=== PATIENT | female | born 1960 | race Caucasian/White ===

== ENCOUNTER 2016-05-10 22:32 | Emergency (ER) | payer SELFPAY ==
[~2016-05-10] VITALS: Ht 160 cm; Wt 93.5 kg
[~2016-05-10 22:32] MED LIST: AMLO-145 PO; ASPI81TA3 PO; ATOR20TA38 PO; FIORINAL PO; HYD25 PO; HYDR-3011 PO; METO-407 PO
[2016-05-10 22:46] VITALS: Ht 160 cm; Wt 93.5 kg
== END 2016-05-11 00:56 | disposition left against medical advice (07) ==
LOC: E/R 22:32
DX: Z53.21 Procedure and treatment not carried out due to patient leaving prior to being seen by health care provider (principal)

== ENCOUNTER 2016-05-20 23:33 | Emergency (ER) | payer SELFPAY ==
[~2016-05-20] VITALS: Wt 91.5 kg
== END 2016-05-21 04:17 | disposition left against medical advice (07) ==
LOC: E/R 23:33
DX: Z53.21 Procedure and treatment not carried out due to patient leaving prior to being seen by health care provider (principal)

== ENCOUNTER 2017-02-17 08:17 | Day surgery (SDC) | payer OTHER ==
[~2017-02-17] VITALS: Ht 160 cm; Wt 92.9 kg
[~2017-02-17 08:17] MED LIST changes: -HYD25 PO; +HYDR25TA6 PO
[2017-02-17] MEDS ORDERED: [UNRECOGNIZED DRUG - REMARK] (09:13)
[2017-02-17 09:15] VITALS: Ht 160 cm; Wt 92.9 kg
--- NOTE | 2017-02-17 10:00 | OPPN ---
Date/Time of Note Date/Time of Note DATE: 02/17/17 TIME: 09:58 Proc Note GI Procedure Date 02/17/17 Indication: screening/surveillance Pre-procedure Diagnosis r/o colon polyps Post-procedure Diagnosis nodular cecal fold bx done Procedure Performed: Colonoscopy Surgeon see signature line Vehicle Operator Technician none Anesthesia Type: moderate sedation Tourniquet Time none EBL none Transfusion required none Biopsy 1: cecal fold Grafts/Implants none Tubes/Drains none Complication(s) none Procedure Description cecal nodular fold bx done mod sedation JAVIER NEFF MD Feb 17, 2017 10:00
[2017-02-17 10:29] VITALS: BP 132/84; RESP 14
[2017-02-17] MEDS ORDERED: FENTAnyl 50 MCG/ML VIAL ONE (10:33)
[2017-02-17] MEDS ORDERED: MIDAZOLAM 1 MG/ML 2 ML INJ ONE ×2 (10:34)
--- NOTE | 2017-02-18 04:47 | GILP ---
DATE OF PROCEDURE: NAME OF PROCEDURE: Colonoscopy. PREOPERATIVE DIAGNOSIS: Screening, rule out colon polyps. POSTOPERATIVE DIAGNOSIS: Nodular fold in the cecum noted. Biopsies were done. Rest of the colon n ormal. DESCRIPTION OF PROCEDURE: After the informed written consent was obtained, the patient was asked to lie on the left lateral side, 4 mg Versed and 75 mcg of fentanyl was given as intravenous anesthesi a. When the patient became somnolent, the Olympus video colonoscope was introduced into the rectum and scope was advanced all the way to the cecum. The fold in the cecum showed evidence of nodularity. Multiple biopsies were obtained to rule out possible lymphoma. Entire rest of the colon was examine d thoroughly which appeared normal, no additional abnormalities detected. On the way out, no additi onal abnormalities detected and the procedure was terminated. PLAN: Recommend wait for the pathology report. If the pathology is normal of lymphoid follicles, r ecommend repeat colonoscopy in 10 years. Dictated By: JAVIER WESLEY/GUY Conf#: [id number] DID#: [id number] CC: [facility];*EndCC*
== END 2017-02-17 11:20 | disposition home or self-care (01) ==
LOC: GIL 08:17
PROVIDERS: ATTEND Internal Medicine Gastroenterology
DX: Z12.11 Encounter for screening for malignant neoplasm of colon (principal); D12.0 Benign neoplasm of cecum
CPT/HCPCS: 45380; 84703; 88305; J2250; J3010; Z7610

== ENCOUNTER 2017-04-08 01:09 | Inpatient (IN) | payer OTHER ==
[~2017-04-08] VITALS: Ht 160 cm; Wt 93.2 kg
[~2017-04-08 01:09] MED LIST changes: -AMLO-145 PO; -FIORINAL PO; -HYDR-3011 PO; -HYDR25TA6 PO; +[UNRECOGNIZED DRUG - REMARK]
[2017-04-08 01:11] VITALS: Ht 160 cm; Wt 93.2 kg
[2017-04-08] MEDS ORDERED: SOD CHLORIDE 0.9% 500 ML IV STA (01:17)
[2017-04-08] MEDS ORDERED: ONDANSETRON 4 MG INJ IV STA (01:17)
[2017-04-08] MEDS ORDERED: morphine 4 MG/ML VIAL IV STA (01:17)
[2017-04-08 01:56] LABS: BASOPHILS % 0.4 % (0.0-2.0); EOSINOPHILS # 0.2 10^3/ul (0.0-0.5); EOSINOPHILS % 2.3 % (0.0-7.0); HEMATOCRIT 42.2 % (37.0-47.0); HEMOGLOBIN 14.6 g/dl (12.0-16.0); LYMPHOCYTES # 3.1 10^3/ul (0.8-2.9); LYMPHOCYTES % 37.3 % (15.0-51.0); MEAN CORPUSCULAR HEMOGLOBIN 31.3 pg (29.0-33.0); MEAN CORPUSCULAR HGB CONC 34.6 g/dl (32.0-37.0); MEAN CORPUSCULAR VOLUME 90.4 fl (82.0-101.0); MEAN PLATELET VOLUME 11.4 fl (7.4-10.4); MONOCYTE # 0.8 10^3/ul (0.3-0.9); NEUTROPHIL # 4.1 10^3/ul (1.6-7.5); NEUTROPHILS % 49.8 % (39.0-77.0); PLATELET COUNT 170 10^3/UL (140-415); RED BLOOD COUNT 4.67 10^6/ul (4.20-5.40); WHITE BLOOD COUNT 8.2 10^3/ul (4.8-10.8)
[2017-04-08 01:59] LABS: ADD UMIC YES; UR ASCORBIC ACID NEGATIVE (NEGATIVE); UR BILIRUBIN (Dip) NEGATIVE (NEGATIVE); UR BLOOD (Dip) NEGATIVE (NEGATIVE); UR CLARITY CLEAR (CLEAR); UR COLOR YELLOW (YELLOW); UR GLUCOSE (Dip) NEGATIVE (NEGATIVE); UR KETONES (Dip) NEGATIVE (NEGATIVE); UR LEUKOCYTE ESTERASE (Dip) TRACE Leu/ul (NEGATIVE); UR NITRITE (Dip) NEGATIVE (NEGATIVE); UR RBC 1 /HPF (0-5); UR SPECIFIC GRAVITY (Dip) 1.016 (1.003-1.030); UR TOTAL PROTEIN (Dip) NEGATIVE (NEGATIVE); UR UROBILINOGEN (Dip) NEGATIVE (NEGATIVE)
--- NOTE | 2017-04-08 02:03 | RADRPT ---
PROCEDURE: CT Abdomen and Pelvis without contrast. CLINICAL INDICATION: Abdominal pain. TECHNIQUE: CT scan of the abdomen and pelvis without contrast was performed on a multidetector hig h-resolution CT scanner. The patient was scanned without intravenous contrast. Coronal and sagittal reformatted images were obtained from the axial source images. Images were reviewed on a high-resol [employer] PACS workstation. The total exam CTDI equals 21.50 mGy and the total exam DLP equals 1315.63 m Gy-cm. DICOM images are available. One or more of the following dose reduction techniques were utilized: 1.) Automated exposure control 2.) Adjustment of the mA +/- kV according to patient's size 3.) Use of iterative reconstruction technique. COMPARISON: None. FINDINGS: ABNORMAL RESULTS: 17 MM CALCIFIED NODULE AT THE ANTERIOR WALL OF THE URINARY BLADDER IS SUSPICIOUS FOR NEOPLASM. PLEASE TAKE APPROPRIATE STEPS. CT abdomen: The lung bases are clear. The heart size is normal, without pericardial thickening or effusion. The liver is normal in size and density without focal mass or intrahepatic biliary dilatation. The spleen is normal in size and homogeneous in density. The stomach is partially collapsed, but is randy ssly unremarkable. The pancreas as visualized is normal. The gallbladder and biliary tree are unre markable and there is no evidence for biliary dilatation. The adrenal glands are symmetric and norm al. 11 mm high attenuation exophytic likely hemorrhagic cyst in the left kidney. Consider ultrasoun d correlation to exclude a solid nodule. Nonobstructing renal calculi at the mid pole right kidney s uggest a parenchymal scar, otherwise nonspecific. There is associated volume loss at the mid pole ri ght kidney. These measure up to about 4 mm in the axial plane. Otherwise, the kidneys are symmetrica lly unremarkable. No renal calculus or obstructive uropathy or mass lesion is seen. The aorta is of normal caliber. Aortic vascular calcifications are present. There is no retroperit mao lymphadenopathy. The stormy hepatis region is clear. The bowel and mesentery, as visualized, are equally unremarkable. ABNORMAL RESULTS: 17 MM CALCIFIED NODULE AT THE ANTERIOR WALL OF THE URINARY BLADDER IS SUSPICIOUS FOR NEOPLASM. PLEASE TAKE APPROPRIATE STEPS. CT pelvis: The small bowel loops situated within the pelvis are unremarkable. 17 mm nodule in the anterior wall of the urinary bladder with associated 4 mm calcification. Findings are suspicious for neoplasm. Re commend IV contrast enhanced CT examination of the abdomen and pelvis for further evaluation. The pe lvic organs are otherwise normal. The pelvic sidewalls and inguinal regions are clear. The sigmoid colon and rectum are remarkable for sigmoid diverticulosis. No mass, lymphadenopathy, or free flui d is seen. No acute inflammation is seen. The appendix is unremarkable. The surrounding osseous structures are remarkable for degenerative spondylosis of the spine. No ost eolytic or osteoblastic lesion is detected. IMPRESSION: 1. 17 mm calcified nodule in the anterior wall of the urinary bladder is suspicious for neoplasm. 2. Recommend non emergent IV contrast enhanced CT examination of the abdomen and pelvis for further evaluation. 3. Likely parenchymal scar at the inferior pole the right kidney, with parenchymal volume loss and d ystrophic calcifications. 4. Small likely hemorrhagic cyst at the left kidney and consider ultrasound examination to exclude a solid nodule. 5. Otherwise, no acute process in the abdomen or pelvis. ABNORMAL RESULTS: 17 MM CALCIFIED NODULE AT THE ANTERIOR WALL OF THE URINARY BLADDER IS SUSPICIOUS FOR NEOPLASM. PLEASE TAKE APPROPRIATE STEPS. Physician Lukas Date Time Electronically viewed and signed by Physician Lukas on 04/08/2017 02:03 RS/
--- NOTE | 2017-04-08 02:07 | RADRPT ---
PROCEDURE: CHEST - 1 VIEW CLINICAL INDICATION: 56-year-old female with chest/abdominal pain. TECHNIQUE: A single frontal PA view of the chest was performed. The images were reviewed on a PAC S workstation. COMPARISON: Chest x-ray April 22, 2016. FINDINGS: The cardiomediastinal silhouette is within normal limits. There is no evidence for an infiltrate. There is no evidence for congestive heart failure. There is no evidence for pneumothorax. The osseou s structures are intact. IMPRESSION: No evidence for active cardiopulmonary disease. .Malik Taylor MD, MD Date Time Electronically viewed and signed by .Malik Taylor MD, on 04/08/2017 02:07 .Kasey
[2017-04-08 02:49] LABS: ALANINE AMINOTRANSFERASE 60 IU/L (13-69); ALBUMIN 4.5 g/dl (3.3-4.9); ALBUMIN/GLOBULIN RATIO 1.21; ALKALINE PHOSPHATASE 110 IU/L (42-121); ANION GAP 13 (8-16); ASPARTATE AMINO TRANSFERASE 41 IU/L (15-46); BILIRUBIN,INDIRECT 0.1 mg/dl (0-1.1); BILIRUBIN,TOTAL 0.1 mg/dl (0.2-1.3); BLOOD UREA NITROGEN 20 mg/dl (7-20); CALCIUM 9.3 mg/dl (8.4-10.2); CARBON DIOXIDE 28 mmol/L (21-31); CHLORIDE 104 mmol/L (97-110); CREATININE 0.96 mg/dl (0.44-1.00); GLUCOSE 113 mg/dl (70-220); SODIUM 142 mmol/L (135-144); TOTAL PROTEIN 8.2 g/dl (6.1-8.1)
[2017-04-08 02:53] LABS: POTASSIUM 2.9 mmol/L (3.5-5.1)
[2017-04-08 03:02] LABS: TROPONIN-I < 0.012 ng/ml (0.00-0.12)
--- NOTE | 2017-04-08 03:21 | ERD ---
ER Documentation Chief Complaint Chief Complaint WORSENING EPIGASTRIC PAIN X 3 DAYS HPI This is a very pleasant 56-year-old comes in with worsening epigastric pain over the past 3 days along with suprapubic abdominal pain over the past 2 days. Pain in the epigastric region is 2-3 days in duration mild to moderate intensity no exacerbating relieving factors. Mild in severity region for the past 2 days. No urinary urinary urgency or frequency. No nausea no vomiting no chills. No other current complaints. ROS All systems reviewed and are negative except as per history of present illness. Medications Home Meds Active Scripts Atorvastatin Calcium* (Atorvastatin Calcium*) 20 Mg Tablet, 20 MG PO QHS, #30 TAB Prov:NEDA AGUILAR 04/23/16 Metoprolol Tartrate* (Lopressor*) 100 Mg Tablet, 100 MG PO BID, #60 TAB Prov:NEDA AGUILAR 04/23/16 Reported Medications [unknown medication] No Conflict Check 02/17/17 Aspirin* (Aspirin* Chew) 81 Mg Tab.chew, 81 MG PO DAILY, TAB.CHEW 04/23/16 Allergies Allergies: Coded Allergies: acetaminophen (Verified Allergy, Mild, 02/17/17) codeine (Verified Allergy, Mild, 02/17/17) PMhx/Soc History of Surgery: Yes (KIDNEY SURGERY FOR STONES) Anesthesia Reaction: No Hx Neurological Disorder: No Hx Respiratory Disorders: No Hx Cardiac Disorders: Yes (HTN, HYPERLIPIDEMIA) Hx Psychiatric Problems: No Hx Miscellaneous Medical Probl: No Hx Alcohol Use: No Hx Substance Use: No Hx Tobacco Use: No Smoking Status: Never smoker Physical Exam Vitals Vital Signs Date Time Temp Pulse Resp B/P Pulse Ox O2 Delivery O2 Flow Rate FiO2 04/08/17 01:11 75 16 239/114 99 Physical Exam Const: [] Head: Atraumatic Eyes: Normal Conjunctiva ENT: Normal External Ears, Nose and Mouth. Neck: Full range of motion..~ No meningismus. Resp: Clear to auscultation bilaterally Cardio: Regular rate and rhythm, no murmurs Abd: Soft, non tender, non distended. Normal bowel sounds Skin: No petechiae or rashes Back: No midline or flank tenderness Ext: No cyanosis, or edema Neur: Awake and alert Psych: Normal Mood and Affect Result Diagram: 12/5/17 0140 12/5/17 0140 Results 24 hrs Laboratory Tests Test 04/08/17 01:30 04/08/17 01:40 Urine Color YELLOW Urine Clarity CLEAR Urine pH 6.0 Urine Specific [place] 1.016 Urine Ketones NEGATIVEmg/dL Urine Nitrite NEGATIVEmg/dL Urine Bilirubin NEGATIVEmg/dL Urine Urobilinogen NEGATIVEmg/dL Urine Leukocyte Esterase TRACELeu/ul Urine Microscopic RBC 1/HPF Urine Microscopic WBC 9/HPF Urine Hemoglobin NEGATIVEmg/dL Urine Glucose NEGATIVEmg/dL Urine Total Protein NEGATIVEmg/dl White Blood Count 8.210^3/ul Red Blood Count 4.6710^6/ul Hemoglobin 14.6g/dl Hematocrit 42.2% Mean Corpuscular Volume 90.4fl Mean Corpuscular Hemoglobin 31.3pg Mean Corpuscular Hemoglobin Concent 34.6g/dl Red Cell Distribution Width 13.0% Platelet Count 99183^3/UL Mean Platelet Volume 11.4fl Neutrophils % 49.8% Lymphocytes % 37.3% Monocytes % 10.0% Eosinophils % 2.3% Basophils % 0.4% Nucleated Red Blood Cells % 0.0/100WBC Neutrophils # 4.110^3/ul Lymphocytes # 3.110^3/ul Monocytes # 0.810^3/ul Eosinophils # 0.210^3/ul Basophils # 0.010^3/ul Nucleated Red Blood Cells # 0.010^3/ul Sodium Level 142mmol/L Potassium Level 2.9mmol/L Chloride Level 104mmol/L Carbon Dioxide Level 28mmol/L Anion Gap 13 Blood Urea Nitrogen 20mg/dl Creatinine 0.96mg/dl Glucose Level 113mg/dl Calcium Level 9.3mg/dl Total Bilirubin 0.1mg/dl Direct Bilirubin 0.00mg/dl Indirect Bilirubin 0.1mg/dl Aspartate Amino Transf (AST/SGOT) 41IU/L Alanine Aminotransferase (ALT/SGPT) 60IU/L Alkaline Phosphatase 110IU/L Troponin I < 0.012ng/ml Total Protein 8.2g/dl Albumin 4.5g/dl Globulin 3.70g/dl Albumin/Globulin Ratio 1.21 Lipase 112U/L Current Medications Medications (Trade) Dose Ordered Sig/Gabby Route PRN Reason Start Time Stop Time Status Last Admin Dose Admin Sodium Chloride (NS) 500 ml @ 500 mls/hr Q1H STAT IV 04/08/17 01:17 12/5/17 02:16 DC 04/08/17 01:45 Morphine Sulfate (morphine) 4 mg ONCE STAT IV 04/08/17 01:17 04/08/17 01:18 DC 04/08/17 01:43 Ondansetron HCl (Zofran Inj) 4 mg ONCE STAT IV 04/08/17 01:17 04/08/17 01:18 DC 04/08/17 01:43 Procedures/MDM Assessment: 56-year-old female with abdominal pain. Found to be hypokalemic. Potassium repleted. Suspicious mass en bloc CT scan will need to be further evaluated. Patient will be admitted to hospitalist. Departure Diagnosis: Primary Impression: Abdominal pain Abdominal location: unspecified location Qualified Code: R10.9 - Abdominal pain, unspecified abdominal location Condition: Serious ALBANIA MORENO Apr 08, 2017 03:21
[2017-04-08] MEDS ORDERED: POTASSIUM CHLORIDE 250 ML IVPB ONE (03:30)
[2017-04-08] MEDS ORDERED: NACL 0.9% 3 ML SYG IV SCH (04:30)
[2017-04-08] MEDS ORDERED: ALBUTEROL/IPRATROPIUM (NEB) 3 ML AMP HHN PRN (04:30)
[2017-04-08] MEDS ORDERED: ONDANSETRON 4 MG INJ IV PRN (04:30)
[2017-04-08 06:00] VITALS: BP 157/84; RESP 14
[2017-04-08 07:41] VITALS: BP 154/77; RESP 20
[2017-04-08 08:20] LABS: CALCIUM 8.7 mg/dl (8.4-10.2); CREATININE 0.65 mg/dl (0.44-1.00); POTASSIUM 3.5 mmol/L (3.5-5.1)
[2017-04-08] MEDS: METOPROLOL 100 MG TAB PO SCH ×2 (09:28→20:58)
[2017-04-08] MEDS: CEFTRIAXONE 1 GM/50 ML (PMX) 50 ML IVPB SCH ×2 (09:28→20:56)
[2017-04-08] MEDS: DEXTROSE 5%-0.45% NACL 1,000 ML IV SCH ×3 (09:30→20:59)
--- NOTE | 2017-04-08 09:53 | HP ---
Date/Time of Note Date/Time of Note DATE: 04/08/17 TIME: 09:42 Assessment/Plan VTE Prophylaxis VTE Prophylaxis Intervention: SCD's Lines/Catheters IV C[facility]from [facility] Peripheral IV Assessment/Plan Assessment/Plan 1. Bladder mass, suspicious for neoplasm - urology evaluation -Urine cytology 2. Abdominal pain -location of her abdominal pain does not seem to be related to the CT scan finding of a bladder mass, but the workup for the bladder mass is as mentioned above. -Trial of PPI. Lipase is negative so unlikely pancreatitis 3. UTI - IV antibiotic - Follow-up culture results 4. History of bilateral kidney stone: with a history of right-sided stent placement -CT scan this time did not show calculus, so we are not dealing his acute issue here 5. History of hypertension Continue antihypertensives adjustment as needed 6. History of dyslipidemia Continue outpatient medications 7. Obesity, with a BMI of 36 Weight reduction was advised HPI/ROS Admit Date/Time Admit Date/Time Apr 08, 2017 at 03:22 Hx of Present Illness This is a 56-year-old female with a history of hypertension, dyslipidemia, bilateral kidney stones with a history of right sided stent placement. Patient presented to ER complaining of abdominal pain. Pain started 10 days ago, acutely worsening for the past 1 day. She reported associated nausea but no vomiting. Pain is mainly localized in the epigastric area. She also reported acid reflux symptoms. Denied dysuria, hematuria, fever/chills, chest pain or shortness of breath. When she presented to the ER CT abdomen/pelvis [id number] mm calcified nodule in the anterior wall of the urinary bladder is suspicious for neoplasm. Urinalysis consistent with UTI. Initial potassium was 2.9 and was repleted in the ER. I have talked to her son over the phone about the CT scan finding of possible bladder neoplasm. He wanted her mom to be told about the findings in the presence of family members. When I went into the patient's room and started introducing myself, patient appeared slightly anxious and started mentioning cancer. I briefly told her about abnormality in her bladder but told her dad we will discuss the findings when her son or other family members are present, which she agreed with. PMH/Family/Social Social History Smoking Status: Never smoker Exam/Review of Systems Vital Signs Vitals Vital Signs Date Time Temp Pulse Resp B/P Pulse Ox O2 Delivery O2 Flow Rate FiO2 12/5/17 07:41 98.0 72 20 154/77 96 04/08/17 04:19 Room Air Intake and Output 04/07/17 04/07/17 04/08/17 14:59 22:59 06:59 Intake Total 0 ml Output Total 0 ml Balance 0 ml Exam Constitutional: alert, oriented, other (Slightly anxious) Head: atraumatic, normocephalic Eyes: EOMI, PERRL Respiratory: clear to auscultation, normal air movement Cardiovascular: nl pulses, regular rate and rhythm Gastrointestinal: other (Minimal tenderness to deep palpation in the epigastric area, with no guarding, no rigidity), soft Extremities: normal pulses Labs Result Diagram: 04/08/17 0140 04/08/17 0742 Medications Medications Current Medications Dextrose/Sodium Chloride (D5-1/2ns) 1,000 ml @ 100 mls/hr Q10H IV Last administered on 04/08/17 09:30; Admin Dose 100 MLS/HR; Start 04/08/17 at 04:30 Ondansetron HCl (Zofran Inj) 4 mg Q6H PRN IV NAUSEA AND/OR VOMITING; Start 04/08/17 at 04:30 Atorvastatin Calcium (Lipitor) 20 mg QHS PO ; Start 04/08/17 at 21:00 Metoprolol Tartrate 100 mg 100 mg BID PO Last administered on 04/08/17 09:28; Admin Dose 100 MG; Start 04/08/17 at 09:00 Ceftriaxone Sodium (Rocephin) 50 ml @ 100 mls/hr Q12 IVPB Last administered on 04/08/17 09:28; Admin Dose 100 MLS/HR; Start 04/08/17 at 09:00 Tramadol HCl (Ultram) 50 mg Q6H PRN PO PAIN; Start 04/08/17 at 04:30 Ketorolac Tromethamine (Toradol) 15 mg Q6H PRN IV PAIN; Start 04/08/17 at 04:30 ; Stop 04/11/17 at 04:29 Influenza Virus Vaccine (Fluzone) 0.5 ml ONCE ONCE IM* ; Start 04/08/17 at 11:00 ; Stop 04/08/17 at 11:01 ALBANIA RIBEIRO MD Apr 08, 2017 09:53
[2017-04-08] MEDS ORDERED: INFLUENZA VIRUS VACCINE 0.5 ML SYG IM* ONE (11:00)
[2017-04-08 14:10] VITALS: BP 128/65; RESP 20
[2017-04-08] MEDS: KETOROLAC 15 MG INJ IV PRN (17:06)
--- NOTE | 2017-04-08 19:33 | CONS ---
Date/Time of Note Date/Time of Note DATE: 04/08/17 TIME: 19:20 Assessment/Plan Assessment/Plan Chief Complaint/Hosp Course 56-year-old female presented to the emergency room because of abdominal pain mostly in the epigastric area and also across the abdomen and in the lower abdomen. Pain was associated with nausea but no vomiting. Patient has no lower urinary tract symptoms. She underwent a CT scan of the abdomen and pelvis and that showed a 17 mm mass in the anterior bladder was calcification on it. I looked at her CT scan and she did have similar problem on June 02, 2011 which would make it about 6 years ago. The mass has increased in size from 5 to17 mm and the calcification was present at that time as well. The patient denies any history of gross hematuria. She did have a staghorn calculus in the right kidney for which she underwent open surgery at [facility] and she still have stones in the right kidney and she may well have passed a small stone that causes her pain and may be nausea. If there is no explanation to her pain then I will do a cystoscopy and bladder biopsy and retrograde pyelogram. the stones that she has in the kidney are small but could block her intermittently to cause her pain Problems: Consultation Date/Type/Reason Admit Date/Time Apr 08, 2017 at 03:22 Date of Consultation: Apr 08, 2017 Type of Consultation: Urology Reason for Consultation 17 mm mass anterior bladder wall was calcification on it Referring Provider: ALBANIA RIBEIRO MD Hx of Present Illness 56-year-old female presented to the emergency room complaining of mostly epigastric pain was nausea and now she states that the also pain was in all over the abdomen. She was having this pain for about 5 days and the day of her admission the pain was sudden and severe. Upon admission she underwent a CT scan of the abdomen and pelvis and that showed a mass measuring about 17 mm anterior bladder wall with calcification on it therefore a urological consultation was requested. The patient does have a history of staghorn calculus of the right kidney and she has undergone a partial nephrectomy at [facility] in 1999. She still has residual stones in the right kidney. The patient was here in May 2011 and she did have a CT scan of the time and that showed the same finding on the anterior bladder wall. But the mass was smaller than it is now. Patient herself denies any urinary symptoms she has no dysuria no gross hematuria no urgency or urgency incontinence. Constitutional: no complaints Eyes: no complaints ENT: no complaints Respiratory: no complaints Cardiovascular: no complaints Gastrointestinal: nausea, No vomiting Genitourinary: No dysuria, No hematuria Musculoskeletal: no complaints Skin: no complaints Neurologic: no complaints Endocrine: no complaints Lymphatic: no complaints Psychological: no complaints Past Medical History Medical History: high cholesterol, hypertension, other (Obesity) Past Surgical History Past Surgical Hx: other (Surgery for right renal staghorn calculus in 1999. she did have a JJ stent at that time) Family History Significant Family History: no pertinent family hx Social History Alcohol Use: none Smoking Status: Never smoker Other Social History She is a 3 para 3 normal deliveries Exam/Review of Systems Vital Signs Vitals Vital Signs Date Time Temp Pulse Resp B/P Pulse Ox O2 Delivery O2 Flow Rate FiO2 04/08/17 14:10 98.3 60 20 128/65 96 04/08/17 04:19 Room Air Intake and Output 04/07/17 04/07/17 04/08/17 15:00 23:00 07:00 Intake Total 0 ml Output Total 0 ml Balance 0 ml Exam Constitutional: alert, oriented Psych: no complaints Head: normocephalic Eyes: nl conjunctiva ENMT: nl external ears & nose Neck: supple Respiratory: normal air movement Cardiovascular: No jugular venous distention (JVD) Gastrointestinal: non-tender, other (Obese), soft, surgical scars Genitourinary - Female: other (Pelvic exam no mass no discharge), No CVA tenderness Musculoskeletal: nl extremities to inspection Extremities: No calf tenderness, No edema Neurological: nl mental status Skin: nl turgor Results Result Diagram: 04/08/17 0140 04/08/17 0742 Results 24 hrs Laboratory Tests Test 04/08/17 01:30 04/08/17 01:40 04/08/17 07:42 Urine Color YELLOW Urine Clarity CLEAR Urine pH 6.0 Urine Specific [place] 1.016 Urine Ketones NEGATIVE Urine Nitrite NEGATIVE Urine Bilirubin NEGATIVE Urine Urobilinogen NEGATIVE Urine Leukocyte Esterase TRACE A Urine Microscopic RBC 1 Urine Microscopic WBC 9 H Urine Hemoglobin NEGATIVE Urine Glucose NEGATIVE Urine Total Protein NEGATIVE White Blood Count 8.2 # Red Blood Count 4.67 Hemoglobin 14.6 Hematocrit 42.2 Mean Corpuscular Volume 90.4 Mean Corpuscular Hemoglobin 31.3 Mean Corpuscular Hemoglobin Concent 34.6 Red Cell Distribution Width 13.0 Platelet Count 170 Mean Platelet Volume 11.4 H Neutrophils % 49.8 Lymphocytes % 37.3 Monocytes % 10.0 Eosinophils % 2.3 Basophils % 0.4 Nucleated Red Blood Cells % 0.0 Neutrophils # 4.1 Lymphocytes # 3.1 H Monocytes # 0.8 Eosinophils # 0.2 Basophils # 0.0 Nucleated Red Blood Cells # 0.0 Sodium Level 142 142 Potassium Level 2.9 *L 3.5 Chloride Level 104 108 Carbon Dioxide Level 28 26 Anion Gap 13 12 Blood Urea Nitrogen 20 15 Creatinine 0.96 0.65 Glucose Level 113 111 Calcium Level 9.3 8.7 Total Bilirubin 0.1 L Direct Bilirubin 0.00 Indirect Bilirubin 0.1 Aspartate Amino Transf (AST/SGOT) 41 Alanine Aminotransferase (ALT/SGPT) 60 Alkaline Phosphatase 110 Troponin I < 0.012 Total Protein 8.2 H Albumin 4.5 Globulin 3.70 H Albumin/Globulin Ratio 1.21 Lipase 112 Imaging Free Text/Dictation CT scan of the abdomen and pelvis: 1. 17 mm calcified nodule in the anterior wall of the urinary bladder is suspicious for neoplasm. 2. Recommend non emergent IV contrast enhanced CT examination of the abdomen and pelvis for further evaluation. 3. Likely parenchymal scar at the inferior pole the right kidney, with parenchymal volume loss and dystrophic calcifications. 4. Small likely hemorrhagic cyst at the left kidney and consider ultrasound examination to exclude a solid nodule. 5. Otherwise, no acute process in the abdomen or pelvis. Medications Medications Current Medications Dextrose/Sodium Chloride (D5-1/2ns) 1,000 ml @ 100 mls/hr Q10H IV Last administered on 04/08/17 09:30; Admin Dose 100 MLS/HR; Start 04/08/17 at 04:30 Ondansetron HCl (Zofran Inj) 4 mg Q6H PRN IV NAUSEA AND/OR VOMITING; Start 04/08/17 at 04:30 Atorvastatin Calcium (Lipitor) 20 mg QHS PO ; Start 04/08/17 at 21:00 Metoprolol Tartrate 100 mg 100 mg BID PO Last administered on 04/08/17 09:28; Admin Dose 100 MG; Start 04/08/17 at 09:00 Ceftriaxone Sodium (Rocephin) 50 ml @ 100 mls/hr Q12 IVPB Last administered on 04/08/17 09:28; Admin Dose 100 MLS/HR; Start 04/08/17 at 09:00 Tramadol HCl (Ultram) 50 mg Q6H PRN PO PAIN; Start 04/08/17 at 04:30 Ketorolac Tromethamine (Toradol) 15 mg Q6H PRN IV PAIN Last administered on 17:06; Admin Dose 15 MG; Start 04/08/17 at 04:30; Stop 04/11/17 at 04:29 JOSELUIS WHITAKER MD Apr 08, 2017 19:33
[2017-04-08 20:21] VITALS: BP 118/68; RESP 18
[2017-04-08] MEDS: ATORVASTATIN 20 MG TAB PO SCH (20:57)
[2017-04-09] MEDS: DEXTROSE 5%-0.45% NACL 1,000 ML IV SCH ×4 (00:30→20:30)
[2017-04-09 02:45] VITALS: BP 97/55; RESP 20
[2017-04-09 06:26] LABS: BASOPHILS % 0.5 % (0.0-2.0); EOSINOPHILS # 0.2 10^3/ul (0.0-0.5); HEMATOCRIT 38.3 % (37.0-47.0); HEMOGLOBIN 13.1 g/dl (12.0-16.0); LYMPHOCYTES # 1.8 10^3/ul (0.8-2.9); MEAN CORPUSCULAR HEMOGLOBIN 31.5 pg (29.0-33.0); MEAN CORPUSCULAR HGB CONC 34.2 g/dl (32.0-37.0); MEAN CORPUSCULAR VOLUME 92.1 fl (82.0-101.0); MEAN PLATELET VOLUME 11.7 fl (7.4-10.4); MONOCYTE # 0.5 10^3/ul (0.3-0.9); NEUTROPHIL # 1.8 10^3/ul (1.6-7.5); NEUTROPHILS % 41.3 % (39.0-77.0); PLATELET COUNT 141 10^3/UL (140-415); RED BLOOD COUNT 4.16 10^6/ul (4.20-5.40); RED CELL DISTRIBUTION WIDTH 13.4 % (11.5-14.5); WHITE BLOOD COUNT 4.4 10^3/ul (4.8-10.8)
[2017-04-09 06:51] LABS: ALBUMIN 3.2 g/dl (3.3-4.9); ALBUMIN/GLOBULIN RATIO 0.88; BILIRUBIN,INDIRECT 0.2 mg/dl (0-1.1); BILIRUBIN,TOTAL 0.2 mg/dl (0.2-1.3); CHOL/HDL RATIO 2.9 RATIO; CREATININE 0.71 mg/dl (0.44-1.00); MAGNESIUM 1.8 mg/dl (1.7-2.5); PHOSPHORUS 4.1 mg/dl (2.5-4.9); POTASSIUM 3.6 mmol/L (3.5-5.1); TOTAL PROTEIN 6.8 g/dl (6.1-8.1)
[2017-04-09 07:32] VITALS: BP 118/74; RESP 20
--- NOTE | 2017-04-09 07:57 | RADRPT ---
PROCEDURE: XR Abdomen. CLINICAL INDICATION: Abdomen pain. TECHNIQUE: AP supine abdomen x-ray. COMPARISON: CT scan of the abdomen and pelvis dated 04/08/2017. FINDINGS: The bowel gas pattern is normal. There is no evidence of obstruction. As seen on prior CT scan, there are multiple right renal calculi. There are degenerative changes of the spine. IMPRESSION: 1. Multiple right renal calculi as seen on prior CT scan. 2. Degenerative changes of the spine. 3. Otherwise unremarkable study. RPTAT: QQ .Stuart Martin MD, MD Date Time Electronically viewed and signed by .Stuart Martin MD, MD on 04/09/2017 07:57 .R/
[2017-04-09] MEDS: METOPROLOL 100 MG TAB PO SCH ×2 (08:27→20:33)
[2017-04-09] MEDS: CEFTRIAXONE 1 GM/50 ML (PMX) 50 ML IVPB SCH ×2 (08:27→20:32)
[2017-04-09] MEDS: KETOROLAC 15 MG INJ IV PRN ×2 (08:32→20:41)
[2017-04-09] MEDS: traMADol 50 MG TAB PO PRN ×2 (10:09→16:37)
[2017-04-09 13:37] VITALS: BP 141/76; RESP 18
[2017-04-09] MEDS ORDERED: METOPROLOL 50 MG TAB PO SCH (13:46)
[2017-04-09] MEDS: ASPIRIN 81 MG TAB PO SCH (16:36)
--- NOTE | 2017-04-09 16:43 | PN ---
Date/Time of Note Date/Time of Note DATE: 04/09/17 TIME: 16:38 Assessment/Plan VTE Prophylaxis VTE Prophylaxis Intervention: SCD's Lines/Catheters IV [facility]ter Type (from [facility]): Peripheral IV Urinary Cath still in place: No Assessment/Plan Chief Complaint/Hosp Course 1. Bladder mass -Patient has had this mass in the past 2011, mass increased from 5 mm to 70 mm was calcified in the past as well - urology evaluation appreciated, follow-up with recommendations 2. Abdominal pain-improved -Pain may be secondary to nephrolithiasis and cystoscopy may be indicated -Trial of PPI. Lipase is negative so unlikely pancreatitis 3. UTI - IV antibiotic - Follow-up culture results 4. History of bilateral kidney stone: with a history of right-sided stent placement -Patient may have some small stones in the kidney and may need a cystoscopy 5. History of hypertension Continue antihypertensives adjustment as needed 6. History of dyslipidemia Continue outpatient medications 7. Obesity, with a BMI of 36 Weight reduction was advised 8. Neck pain likely secondary to arthritis Prophylaxis: SCDs Problems: Subjective 24 Hr Interval Summary Musculoskeletal: bone/joint pain Exam/Review of Systems Vital Signs Vitals Vital Signs Date Time Temp Pulse Resp B/P Pulse Ox O2 Delivery O2 Flow Rate FiO2 04/09/17 13:37 97.9 59 18 141/76 97 04/08/17 04:19 Room Air Intake and Output 04/08/17 04/08/17 04/09/17 15:00 23:00 07:00 Intake Total 3030 ml 1300 ml Output Total 2000 ml 100 ml Balance 1030 ml 1200 ml Exam Constitutional: alert, oriented Respiratory: clear to auscultation Cardiovascular: regular rate and rhythm Gastrointestinal: soft, No distended Musculoskeletal: nl extremities to inspection Results Result Diagram: 04/09/17 0546 04/09/17 0546 Results 24 hrs Laboratory Tests Test 04/09/17 05:46 White Blood Count 4.4 #L Red Blood Count 4.16 L Hemoglobin 13.1 Hematocrit 38.3 Mean Corpuscular Volume 92.1 Mean Corpuscular Hemoglobin 31.5 Mean Corpuscular Hemoglobin Concent 34.2 Red Cell Distribution Width 13.4 Platelet Count 141 Mean Platelet Volume 11.7 H Neutrophils % 41.3 Lymphocytes % 42.0 Monocytes % 11.0 Eosinophils % 5.0 Basophils % 0.5 Nucleated Red Blood Cells % 0.0 Neutrophils # 1.8 Lymphocytes # 1.8 Monocytes # 0.5 Eosinophils # 0.2 Basophils # 0.0 Nucleated Red Blood Cells # 0.0 Sodium Level 144 Potassium Level 3.6 Chloride Level 110 Carbon Dioxide Level 26 Anion Gap 12 Blood Urea Nitrogen 16 Creatinine 0.71 Glucose Level 107 Calcium Level 9.0 Phosphorus Level 4.1 Magnesium Level 1.8 Total Bilirubin 0.2 Direct Bilirubin 0.00 Indirect Bilirubin 0.2 Aspartate Amino Transf (AST/SGOT) 29 Alanine Aminotransferase (ALT/SGPT) 46 Alkaline Phosphatase 71 Total Protein 6.8 # Albumin 3.2 #L Globulin 3.60 H Albumin/Globulin Ratio 0.88 Triglycerides Level 161 H Cholesterol Level 128 LDL Cholesterol, Calculated 52 HDL Cholesterol 44 Cholesterol/HDL Ratio 2.9 Medications Medications Current Medications Dextrose/Sodium Chloride (D5-1/2ns) 1,000 ml @ 100 mls/hr Q10H IV Last administered on 04/09/17 13:21; Admin Dose 100 MLS/HR; Start 04/08/17 at 04:30 Ondansetron HCl (Zofran Inj) 4 mg Q6H PRN IV NAUSEA AND/OR VOMITING; Start 04/08/17 at 04:30 Atorvastatin Calcium (Lipitor) 20 mg QHS PO Last administered on 04/08/17 20: 57; Admin Dose 20 MG; Start 04/08/17 at 21:00 Metoprolol Tartrate 100 mg 100 mg BID PO Last administered on 04/09/17 08:27; Admin Dose 100 MG; Start 04/08/17 at 09:00 Ceftriaxone Sodium (Rocephin) 50 ml @ 100 mls/hr Q12 IVPB Last administered on 04/09/17 08:27; Admin Dose 100 MLS/HR; Start 04/08/17 at 09:00 Tramadol HCl (Ultram) 50 mg Q6H PRN PO PAIN Last administered on 04/09/17 16: 37; Admin Dose 50 MG; Start 04/08/17 at 04:30 Ketorolac Tromethamine (Toradol) 15 mg Q6H PRN IV PAIN Last administered on 08:32; Admin Dose 15 MG; Start 04/08/17 at 04:30; Stop 04/11/17 at 04:29 Aspirin (Aspirin) 81 mg DAILY PO Last administered on 04/09/17t 16:36; Admin Dose 81 MG; Start 04/09/17 at 14:00 BRENDA REECE Apr 09, 2017 16:43
[2017-04-09] MEDS: ATORVASTATIN 20 MG TAB PO SCH (20:32)
[2017-04-09 20:35] VITALS: BP 128/79; RESP 18
[2017-04-10 02:35] VITALS: BP 143/75; RESP 18
[2017-04-10 05:54] LABS: BASOPHILS % 0.5 % (0.0-2.0); EOSINOPHILS # 0.2 10^3/ul (0.0-0.5); EOSINOPHILS % 3.5 % (0.0-7.0); HEMATOCRIT 37.3 % (37.0-47.0); HEMOGLOBIN 13.1 g/dl (12.0-16.0); LYMPHOCYTES # 1.8 10^3/ul (0.8-2.9); LYMPHOCYTES % 28.5 % (15.0-51.0); MEAN CORPUSCULAR HEMOGLOBIN 31.8 pg (29.0-33.0); MEAN CORPUSCULAR HGB CONC 35.1 g/dl (32.0-37.0); MEAN CORPUSCULAR VOLUME 90.5 fl (82.0-101.0); MEAN PLATELET VOLUME 11.4 fl (7.4-10.4); MONOCYTE # 0.7 10^3/ul (0.3-0.9); MONOCYTES % 11.3 % (0.0-11.0); NEUTROPHIL # 3.5 10^3/ul (1.6-7.5); NEUTROPHILS % 55.9 % (39.0-77.0); PLATELET COUNT 132 10^3/UL (140-415); RED BLOOD COUNT 4.12 10^6/ul (4.20-5.40); RED CELL DISTRIBUTION WIDTH 13.1 % (11.5-14.5); WHITE BLOOD COUNT 6.3 10^3/ul (4.8-10.8)
[2017-04-10] MEDS: DEXTROSE 5%-0.45% NACL 1,000 ML IV SCH ×3 (06:06→21:06)
[2017-04-10 06:22] LABS: CALCIUM 8.9 mg/dl (8.4-10.2); CREATININE 0.71 mg/dl (0.44-1.00); POTASSIUM 3.6 mmol/L (3.5-5.1)
[2017-04-10 06:29] LABS: POSITIVE DIFF @See below
[2017-04-10 07:33] VITALS: BP 146/82; RESP 20
[2017-04-10] MEDS: METOPROLOL 100 MG TAB PO SCH ×2 (08:59→21:03)
[2017-04-10] MEDS: ASPIRIN 81 MG TAB PO SCH (08:59)
[2017-04-10] MEDS: CEFTRIAXONE 1 GM/50 ML (PMX) 50 ML IVPB SCH ×2 (09:00→21:04)
[2017-04-10] MEDS: KETOROLAC 15 MG INJ IV PRN ×2 (09:13→21:58)
[2017-04-10 13:22] VITALS: BP 148/70; RESP 20
[2017-04-10] MEDS: traMADol 50 MG TAB PO PRN (13:53)
--- NOTE | 2017-04-10 16:33 | PN ---
Date/Time of Note Date/Time of Note DATE: 04/10/17 TIME: 16:31 Assessment/Plan VTE Prophylaxis VTE Prophylaxis Intervention: SCD's Lines/Catheters IV C[facility] Type [facility]): Peripheral IV Urinary Cath still in place: No Assessment/Plan Chief Complaint/Hosp Course 1. Bladder mass -Patient has had this mass in the past 2011, mass increased from 5 mm to 70 mm was calcified in the past as well - urology evaluation appreciated, plan is for cystoscopy with biopsy tomorrow 2. Abdominal pain-improved -Pain may be secondary to nephrolithiasis and cystoscopy may be indicated -Trial of PPI. Lipase is negative so unlikely pancreatitis 3. UTI - IV antibiotic - Follow-up culture results 4. History of bilateral kidney stone: with a history of right-sided stent placement -Patient may have some small stones in the kidney, cystoscopy tomorrow 5. History of hypertension Continue antihypertensives adjustment as needed 6. History of dyslipidemia Continue outpatient medications 7. Obesity, with a BMI of 36 Weight reduction was advised 8. Neck pain with paresthesia in right arm likely secondary to cervical radiculopathy Will DC with prednisone Prophylaxis: SCDs Problems: Subjective 24 Hr Interval Summary Musculoskeletal: neck pain Exam/Review of Systems Vital Signs Vitals Vital Signs Date Time Temp Pulse Resp B/P Pulse Ox O2 Delivery O2 Flow Rate FiO2 04/10/17 13:22 67 20 148/70 97 04/10/17 07:33 98.0 04/08/17 04:19 Room Air Intake and Output 04/09/17 04/09/17 04/10/17 14:59 22:59 06:59 Intake Total 850 ml 970 ml 480 ml Balance 850 ml 970 ml 480 ml Exam Constitutional: alert, oriented Respiratory: clear to auscultation Cardiovascular: regular rate and rhythm Gastrointestinal: soft, No distended Musculoskeletal: nl extremities to inspection Results Result Diagram: 04/10/1752604/10/17526 Results 24 hrs Laboratory Tests Test 04/10/17 05:27 White Blood Count 6.3 # Red Blood Count 4.12 L Hemoglobin 13.1 Hematocrit 37.3 Mean Corpuscular Volume 90.5 Mean Corpuscular Hemoglobin 31.8 Mean Corpuscular Hemoglobin Concent 35.1 Red Cell Distribution Width 13.1 Platelet Count 132 L Mean Platelet Volume 11.4 H Neutrophils % 55.9 Lymphocytes % 28.5 Monocytes % 11.3 H Eosinophils % 3.5 Basophils % 0.5 Nucleated Red Blood Cells % 0.0 Neutrophils # 3.5 Lymphocytes # 1.8 Monocytes # 0.7 Eosinophils # 0.2 Basophils # 0.0 Nucleated Red Blood Cells # 0.0 Sodium Level 142 Potassium Level 3.6 Chloride Level 107 Carbon Dioxide Level 27 Anion Gap 12 Blood Urea Nitrogen 13 Creatinine 0.71 Glucose Level 88 Calcium Level 8.9 Medications Medications Current Medications Dextrose/Sodium Chloride (D5-1/2ns) 1,000 ml @ 100 mls/hr Q10H IV Last administered on 04/10/17 12:02; Admin Dose 100 MLS/HR; Start 04/08/17 at 04:30 Ondansetron HCl (Zofran Inj) 4 mg Q6H PRN IV NAUSEA AND/OR VOMITING; Start 04/08/17 at 04:30 Atorvastatin Calcium (Lipitor) 20 mg QHS PO Last administered on 04/09/17 20: 32; Admin Dose 20 MG; Start 04/08/17 at 21:00 Metoprolol Tartrate 100 mg 100 mg BID PO Last administered on 04/10/17 08:59; Admin Dose 100 MG; Start 04/08/17 at 09:00 Ceftriaxone Sodium (Rocephin) 50 ml @ 100 mls/hr Q12 IVPB Last administered on 04/10/17 09:00; Admin Dose 100 MLS/HR; Start 04/08/17 at 09:00 Tramadol HCl (Ultram) 50 mg Q6H PRN PO PAIN Last administered on 04/10/17 13: 53; Admin Dose 50 MG; Start 04/08/17 at 04:30 Ketorolac Tromethamine (Toradol) 15 mg Q6H PRN IV PAIN Last administered on 09:13; Admin Dose 15 MG; Start 04/08/17 at 04:30; Stop 04/11/17 at 04:29 Aspirin (Aspirin) 81 mg DAILY PO Last administered on 04/10/17 08:59; Admin Dose 81 MG; Start 04/09/17 at 14:00 BRENDA REECE Apr 10, 2017 16:33
--- NOTE | 2017-04-10 19:29 | CONS ---
Date/Time of Note Date/Time of Note DATE: 04/10/17 TIME: 19:25 Consult Date/Type/Reason Admit Date/Time Apr 08, 2017 at 03:22 Initial Consult Date 04/08/17 Type of Consultation: Urology Reason for Consultation Bladder mass at the anterior bladder wall Ordering Provider: ALBANIA RIBEIRO MD Subjective Patient is feeling comfortable. she denies having any pain today Objective Vital Signs Date Time Temp Pulse Resp B/P Pulse Ox O2 Delivery O2 Flow Rate FiO2 04/10/17 13:22 67 20 148/70 97 04/10/17 07:33 98.0 04/08/17 04:19 Room Air Intake and Output 04/09/17 04/09/17 04/10/17 15:00 23:00 07:00 Intake Total 850 ml 970 ml 480 ml Balance 850 ml 970 ml 480 ml Exam Abdomen is soft, there is no abdominal mass palpable and there is no tenderness Results/Medications Result Diagram: 04/10/17 0527 04/10/17 0527 Results 24 hrs Laboratory Tests Test 04/10/17 05:27 White Blood Count 6.3 # Red Blood Count 4.12 L Hemoglobin 13.1 Hematocrit 37.3 Mean Corpuscular Volume 90.5 Mean Corpuscular Hemoglobin 31.8 Mean Corpuscular Hemoglobin Concent 35.1 Red Cell Distribution Width 13.1 Platelet Count 132 L Mean Platelet Volume 11.4 H Neutrophils % 55.9 Lymphocytes % 28.5 Monocytes % 11.3 H Eosinophils % 3.5 Basophils % 0.5 Nucleated Red Blood Cells % 0.0 Neutrophils # 3.5 Lymphocytes # 1.8 Monocytes # 0.7 Eosinophils # 0.2 Basophils # 0.0 Nucleated Red Blood Cells # 0.0 Sodium Level 142 Potassium Level 3.6 Chloride Level 107 Carbon Dioxide Level 27 Anion Gap 12 Blood Urea Nitrogen 13 Creatinine 0.71 Glucose Level 88 Calcium Level 8.9 Medications Current Medications Dextrose/Sodium Chloride (D5-1/2ns) 1,000 ml @ 100 mls/hr Q10H IV Last administered on 04/10/17t 12:02; Admin Dose 100 MLS/HR; Start 04/08/17 at 04:30 Ondansetron HCl (Zofran Inj) 4 mg Q6H PRN IV NAUSEA AND/OR VOMITING; Start 04/08/17 at 04:30 Atorvastatin Calcium (Lipitor) 20 mg QHS PO Last administered on 04/09/17 20: 32; Admin Dose 20 MG; Start 04/08/17 at 21:00 Metoprolol Tartrate 100 mg 100 mg BID PO Last administered on 04/10/17 08:59; Admin Dose 100 MG; Start 04/08/17 at 09:00 Ceftriaxone Sodium (Rocephin) 50 ml @ 100 mls/hr Q12 IVPB Last administered on 04/10/17 09:00; Admin Dose 100 MLS/HR; Start 04/08/17 at 09:00 Tramadol HCl (Ultram) 50 mg Q6H PRN PO PAIN Last administered on 04/10/17 13: 53; Admin Dose 50 MG; Start 04/08/17 at 04:30 Ketorolac Tromethamine (Toradol) 15 mg Q6H PRN IV PAIN Last administered on 09:13; Admin Dose 15 MG; Start 04/08/17 at 04:30; Stop 04/11/17 at 04:29 Aspirin (Aspirin) 81 mg DAILY PO Last administered on 04/10/17 08:59; Admin Dose 81 MG; Start 04/09/17 at 14:00 Assessment/Plan Chief Complaint/Hosp Course 56-year-old female presented to the emergency room because of abdominal pain mostly in the epigastric area and also across the abdomen and in the lower abdomen. Pain was associated with nausea but no vomiting. Patient has no lower urinary tract symptoms. She underwent a CT scan of the abdomen and pelvis and that showed a 17 mm mass in the anterior bladder with calcification on it. I looked at her CT scan and she did have similar problem on June 02, 2011 which would make it about 6 years ago. The mass has increased in size from 5 to17 mm and the calcification was present at that time as well. The patient denies any history of gross hematuria. 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 I will do a cystoscopy and bladder biopsy . the stones that she has in the kidney are small but could block her intermittently to cause her pain I explained the procedure to her in Swedish, she understood the plan and she is agreeable to proceed I did discuss with her the risk of bladder perforation especially that the tumor and the calcifications are located on the anterior bladder wall. Problems: JOSELUIS WHITAKER MD Apr 10, 2017 19:29
[2017-04-10 19:42] VITALS: BP 174/81; RESP 18
[2017-04-10 20:08] LABS: INR 1.09; PROTIME 14.3 Sec (11.9-14.9); PT RATIO 1.1
[2017-04-10 20:09] LABS: PARTIAL THROMBOPLASTIN TIME 30.6 Sec (25.0-35.0)
[2017-04-10] MEDS: ATORVASTATIN 20 MG TAB PO SCH (21:04)
[2017-04-11] VITALS (11 sets, daily range): BP systolic 123–161; BP diastolic 64–83; PULSE 71–82; RESP 15–19
[2017-04-11] MEDS: DEXTROSE 5%-0.45% NACL 1,000 ML IV SCH ×5 (02:30→22:30)
[2017-04-11] MEDS ORDERED: CEFAZOLIN 1 GM INJ ONE (07:00)
[2017-04-11] MEDS ORDERED: ROCURONIUM 50 MG INJ ONE (07:00)
[2017-04-11] MEDS: CEFTRIAXONE 1 GM/50 ML (PMX) 50 ML IVPB SCH ×2 (08:58→21:03)
[2017-04-11] MEDS: METOPROLOL 100 MG TAB PO SCH ×2 (08:59→21:02)
[2017-04-11] MEDS: ASPIRIN 81 MG TAB PO SCH (09:00)
--- NOTE | 2017-04-11 11:30 | PN ---
Date/Time of Note Date/Time of Note DATE: 04/11/17 TIME: 11:26 Assessment/Plan VTE Prophylaxis VTE Prophylaxis Intervention: SCD's Lines/Catheters IV Catheter Type (from [email or web address] Peripheral IV Urinary Cath still in place: No Assessment/Plan Chief Complaint/Hosp Course 1. Bladder mass -Patient has had this mass in the past 2011, mass increased from 5 mm to 70 mm was calcified in the past as well - urology evaluation appreciated, plan is for cystoscopy with biopsy today 2. Abdominal pain-resolved -Pain may be secondary to nephrolithiasis and/or cystitis -Lipase is negative so unlikely pancreatitis 3. UTI - IV antibiotic -Culture shows mixed gram-positive's 4. History of bilateral kidney stone: with a history of right-sided stent placement -Patient may have some small stones in the kidney, cystoscopy today 5. History of hypertension Continue antihypertensives adjustment as needed 6. History of dyslipidemia Continue outpatient medications 7. Obesity, with a BMI of 36 Weight reduction was advised 8. Neck pain with paresthesia in right arm likely secondary to cervical radiculopathy-improved Will DC with prednisone Prophylaxis: SCDs Problems: Subjective 24 Hr Interval Summary Constitutional: no complaints Exam/Review of Systems Vital Signs Vitals Vital Signs Date Time Temp Pulse Resp B/P Pulse Ox O2 Delivery O2 Flow Rate FiO2 04/11/17 07:43 98.5 75 18 146/73 97 04/08/17 04:19 Room Air Intake and Output 04/10/17 04/10/17 04/11/17 15:00 23:00 07:00 Intake Total 50 ml 1850 ml 1100 ml Output Total 1100 ml Balance 50 ml 750 ml 1100 ml Exam Constitutional: alert, oriented Respiratory: clear to auscultation Cardiovascular: regular rate and rhythm Gastrointestinal: soft, No distended Musculoskeletal: nl extremities to inspection Results Result Diagram: 04/10/1727 04/10/17526 Results 24 hrs Laboratory Tests Test 04/10/17 18:50 04/10/17 19:39 Urine Test NEGATIVE Prothrombin Time 14.3 Prothrombin Time Ratio 1.1 INR International Normalized Ratio 1.09 Activated Partial Thromboplast Time 30.6 Medications Medications Current Medications Dextrose/Sodium Chloride (D5-1/2ns) 1,000 ml @ 100 mls/hr Q10H IV Last administered on 04/11/17 07:08; Admin Dose 100 MLS/HR; Start 04/08/17 at 04:30 Ondansetron HCl (Zofran Inj) 4 mg Q6H PRN IV NAUSEA AND/OR VOMITING; Start 04/08/17 at 04:30 Atorvastatin Calcium (Lipitor) 20 mg QHS PO Last administered on 04/10/17 21: 04; Admin Dose 20 MG; Start 04/08/17 at 21:00 Metoprolol Tartrate 100 mg 100 mg BID PO Last administered on 04/11/17 08:59; Admin Dose 100 MG; Start 04/08/17 at 09:00 Ceftriaxone Sodium (Rocephin) 50 ml @ 100 mls/hr Q12 IVPB Last administered on 04/11/17 08:58; Admin Dose 100 MLS/HR; Start 04/08/17 at 09:00 Tramadol HCl (Ultram) 50 mg Q6H PRN PO PAIN Last administered on 04/10/17 13: 53; Admin Dose 50 MG; Start 04/08/17 at 04:30 Aspirin (Aspirin) 81 mg DAILY PO Last administered on 04/10/17 08:59; Admin Dose 81 MG; Start 04/09/17 at 14:00 BRENDA REECE Apr 11, 2017 11:30
[2017-04-11] MEDS ORDERED: MIDAZOLAM 1 MG/ML 2 ML INJ ONE (12:29)
[2017-04-11] MEDS ORDERED: LIDOCAINE 2% (SDV) 5 ML INJ ONE (12:29)
[2017-04-11] MEDS ORDERED: ONDANSETRON 4 MG INJ ONE (12:29)
[2017-04-11] MEDS ORDERED: DEXAMETHASONE 4 MG/ML 1 ML INJ ONE (12:29)
[2017-04-11] MEDS ORDERED: FENTAnyl 50 MCG/ML VIAL ONE (12:29)
[2017-04-11] MEDS ORDERED: PROPOFOL 20 ML ONE (12:29)
[2017-04-11] MEDS ORDERED: SUGAMMADEX SODIUM 200 MG/2 ML VIAL IV ONE (13:33)
[2017-04-11] MEDS: FENTAnyl 50 MCG/ML VIAL IV PRN ×2 (13:35→14:41)
--- NOTE | 2017-04-11 13:52 | OPR ---
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 The patient was positioned in the lithotomy position. She was given 2 g of Ancef IV at the start of the procedure. Timeout was done and the patient was identified by her name birthdate and the procedure. #22 [place] cystoscope sheath was introduced into the bladder. Urine was collected for culture and sensitivity. The bladder was inspected and the tumor was seen bulging on the anterior bladder wall next to the air bubble. No other pathology was noted. The cystoscope was then removed and I introduced the 26 [place] bipolar resectoscope into the bladder. I first did 1 cut over the tumor and then it started draining yellowish material most likely a mucus or pus. Within that tumor, inside of it, one could see the stone. I delivered the stone through the opening and more mucus/pus drained out. Then I resected the whole tumor then electrocoagulated the base and the edges. Good hemostasis was obtained. I collected urine after the tumor was resected and sent it also for culture. At the end of the procedure there was no bleeding. the bladder was emptied and the patient was transferred to the recovery room in a stable and satisfactory condition. JOSELUIS WHITAKER MD Apr 11, 2017 13:52
[2017-04-11] MEDS ORDERED: LABETALOL HCL 20MG INJ IV PRN (14:00)
[2017-04-11] MEDS ORDERED: ONDANSETRON 4 MG INJ IV PRN (14:00)
[2017-04-11] MEDS ORDERED: KETOROLAC 30 MG INJ IV PRN (14:00)
[2017-04-11] MEDS ORDERED: EPHEDrine SULFATE 50 MG/5 ML SYG IV PRN (14:00)
[2017-04-11] MEDS ORDERED: hydrALAzine 20 MG INJ IV PRN (14:00)
[2017-04-11] MEDS ORDERED: FENTAnyl 50 MCG/ML VIAL IV PRN ×2 (14:00)
[2017-04-11] MEDS ORDERED: METOCLOPRAMIDE 10 MG INJ IV PRN (14:00)
[2017-04-11] MEDS: traMADol 50 MG TAB PO PRN (17:43)
[2017-04-11] MEDS: ATORVASTATIN 20 MG TAB PO SCH (21:02)
[2017-04-12] MEDS: traMADol 50 MG TAB PO PRN ×2 (00:09→06:02)
[2017-04-12 02:13] VITALS: BP 140/78; RESP 18
[2017-04-12 07:20] VITALS: BP 137/74; RESP 18
[2017-04-12] MEDS: DEXTROSE 5%-0.45% NACL 1,000 ML IV SCH (07:22)
[2017-04-12] MEDS: ASPIRIN 81 MG TAB PO SCH (09:27)
[2017-04-12] MEDS: CEFTRIAXONE 1 GM/50 ML (PMX) 50 ML IVPB SCH (09:27)
[2017-04-12] MEDS: METOPROLOL 100 MG TAB PO SCH (09:28)
--- NOTE | 2017-04-12 11:19 | CONS ---
Date/Time of Note Date/Time of Note DATE: 04/12/17 TIME: 11:15 Consult Date/Type/Reason Admit Date/Time Apr 08, 2017 at 03:22 Initial Consult Date 04/08/17 Type of Consultation: Urology Reason for Consultation Bladder mass and a stone in the bladder anterior wall Ordering Provider: ALBANIA RIBEIRO MD Subjective Patient is comfortable, she is voiding well, she has mild dysuria, the urine is clear. She complains of pain in her heels. Objective Vital Signs Date Time Temp Pulse Resp B/P Pulse Ox O2 Delivery O2 Flow Rate FiO2 04/12/17 07:20 98.2 65 18 137/74 97 04/11/17 15:18 Room Air Intake and Output 04/11/17 04/11/17 04/12/17 15:00 23:00 07:00 Intake Total 1200 ml 2910 ml 2790 ml Output Total 2 ml 950 ml 1900 ml Balance 1198 ml 1960 ml 890 ml Exam Abdomen is soft, no tenderness Results/Medications Result Diagram: 04/10/17 0527 04/10/1727 Medications Current Medications Dextrose/Sodium Chloride (D5-1/2ns) 1,000 ml @ 100 mls/hr Q10H IV Last administered on 04/12/17 07:22; Admin Dose 100 MLS/HR; Start 04/08/17 at 04:30 Ondansetron HCl (Zofran Inj) 4 mg Q6H PRN IV NAUSEA AND/OR VOMITING; Start 04/08/17 at 04:30 Atorvastatin Calcium (Lipitor) 20 mg QHS PO Last administered on 04/11/17 21: 02; Admin Dose 20 MG; Start 04/08/17 at 21:00 Metoprolol Tartrate 100 mg 100 mg BID PO Last administered on 04/12/17 09:28; Admin Dose 100 MG; Start 04/08/17 at 09:00 Ceftriaxone Sodium (Rocephin) 50 ml @ 100 mls/hr Q12 IVPB Last administered on 04/12/17 09:27; Admin Dose 100 MLS/HR; Start 04/08/17 at 09:00 Tramadol HCl (Ultram) 50 mg Q6H PRN PO PAIN Last administered on 04/12/17 06: 02; Admin Dose 50 MG; Start 12/5/17 at 04:30 Aspirin (Aspirin) 81 mg DAILY PO Last administered on 04/12/17t 09:27; Admin Dose 81 MG; Start 04/09/17 at 14:00 Assessment/Plan Chief Complaint/Hosp Course 56-year-old female status post cystoscopy and transurethral resection of a tumor anterior bladder wall and removal of stone from it. 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 The patient is voiding well and has mild dysuria. The pathology report is still pending as well as the culture from the bladder from yesterday. From a urological standpoint the patient may be discharged and she should follow-up with me as an outpatient in about 7-10 days. She is not to do any strenuous activity as this may trigger her to bleed. Problems: JOSELUIS WHITAKER MD Apr 12, 2017 11:18
--- NOTE | 2017-04-12 11:58 | PDOCDIS ---
Discharge Instructions CONDITION Patient Condition: Good HOME CARE INSTRUCTIONS: Diet Instructions: Reduced Calorie ACTIVITY: Activity Restrictions: No Restrictions FOLLOW UP/APPOINTMENTS Follow-up Plan Follow-up with your PCP in 1-2 weeks, follow-up with Dr. Ayala of Urology in 1 to 2 weeks BRENDA REECE Apr 12, 2017 11:58
--- NOTE | 2017-04-12 12:20 | DS ---
Date/Time of Note Date/Time of Note DATE: 04/12/17 TIME: 11:59 Discharge Summary Admission/Discharge Info Admit Date/Time Apr 08, 2017 at 03:22 Discharge Date/Time April 12, 2017 Discharge Diagnosis 1. 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 Abdominal pain-resolved -Pain likely secondary to above 3. UTI -Status post 5 days of Rocephin -Culture shows mixed gram-positive's 4. History of bilateral kidney stone: with a history of right-sided stent placement 5. History of hypertension Continue home meds 6. History of dyslipidemia Continue outpatient medications 7. Obesity, with a BMI of 36 Weight reduction was advised 8. Neck pain with paresthesia in right arm likely secondary to cervical radiculopathy-improved NSAIDs recommended Patient Condition: Good Hospital Course Patient is a 56-year-old female with a history of hypertension, dyslipidemia, bilateral kidney stones with a history of right sided stent placement. Patient presented to ER complaining of abdominal pain. In the ER CT abdomen/pelvis [id number] mm calcified nodule in the anterior wall of the urinary bladder is suspicious for neoplasm. Urinalysis consistent with UTI. Patient does have previous imaging for many years that also showed a similar mass in the bladder, mass was somewhat smaller on previous imaging. Patient was seen by urology and was felt that bladder cancer is unlikely considering history but cystoscopy was done to further evaluate the mass. 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 Patient was to follow-up with urology for final pathology results. Patient was treated with antibiotics for UTI. Patient's abdominal pain that she presented with did resolve during hospitalization. Patient did report chronic neck pain and paresthesias in the right arm patient was told she likely has cervical radiculopathy, pain did improve during hospitalization. Patient was advised to use NSAIDs for neck pain. Patient and both sons were informed that she needs follow-up with urology for results of bladder mass biopsy. On the day of discharge patient's vitals, labs and physical exam stable she no acute complaints questions answered. Home Meds Active Scripts Atorvastatin Calcium* (Atorvastatin Calcium*) 20 Mg Tablet, 20 MG PO QHS, #30 TAB Prov:JOSERAJINDERBRENDANEDA 04/23/16 Metoprolol Tartrate* (Lopressor*) 100 Mg Tablet, 100 MG PO BID, #60 TAB Prov:NEDA AGUILAR 04/23/16 Reported Medications [unknown medication] No Conflict Check 02/17/17 Aspirin* (Aspirin* Chew) 81 Mg Tab.chew, 81 MG PO DAILY, TAB.CHEW 04/23/16 Follow-up Plan Follow-up with your PCP in 1-2 weeks, follow-up with Dr. Ayala of Urology in 1 to 2 weeks Primary Care Provider Not On Staff Doctor Time spent on discharge: > 30 minutes BRENDA REECE Apr 12, 2017 12:09
== END 2017-04-12 13:30 | disposition home or self-care (01) | DRG 669 ==
LOC: E/R 01:09 → MS2 03:22
PROVIDERS: ADMIT Internal Medicine; ATTEND Internal Medicine
PROC: 0TCB8ZZ Extirpation of Matter from Bladder, Via Natural or Artificial Opening Endoscopic (ICD-10-PCS; 2017-04-11)
PROC: 0TBB8ZZ Excision of Bladder, Via Natural or Artificial Opening Endoscopic (ICD-10-PCS; principal; 2017-04-11 12:30)
DX: Q64.4 Malformation of urachus (principal); N39.0 Urinary tract infection, site not specified; I10 Essential (primary) hypertension; N20.0 Calculus of kidney; Z79.82 Long term (current) use of aspirin; Z68.36 Body mass index [BMI] 36.0-36.9, adult; E66.9 Obesity, unspecified; M54.12 Radiculopathy, cervical region; N21.0 Calculus in bladder; E78.00 Pure hypercholesterolemia, unspecified
CPT/HCPCS: 36415; 71010; 74000; 74176; 80048; 80053; 80061; 81001; 83690; 83735; 84100; 84484; 84703; 85025; 85610; 85730; 87086; 88300; 88305; 90686; 93005; 96374; 96375; J0690; J0696; J1100; J1885; J2250; J2270; J2405; J3010; J3480; J7040; J7042